=== PATIENT | male | born 2000 | race Caucasian/White ===

== ENCOUNTER 2023-11-24 14:44 | Emergency (ER) | payer OTHER, SELFPAY ==
[2023-11-24 14:48] VITALS: BP 136/72; PULSE 50; RESP 18; O2SAT 100; BMI 34.9
--- NOTE | 2023-11-24 15:06 | ED_ITS ---
HPI - Skin/Abscess/Foreign Bdy General Chief complaint: Skin/Abscess/Foreign Body Stated complaint: vomiting after choking Time Seen by Provider: 11/24/23 14:57 Source: patient and family Mode of arrival: Ambulatory History of Present Illness HPI narrative: Patient is a 23-year-old male. Has no history of reflux disease. One time several years ago had an episode where he felt like food gets stuck in his esophagus but it resolved on its own. He states that just prior to arrival he was eating chicken nuggets. He states he swallowed the chicken nugget and felt like it got stuck in his throat. He states that he vomited a couple times afterwards but nothing came up. He still feels like something is stuck in his throat. He is vomited up his saliva several times since that event. No problems breathing. No chest pain. Related Data Allergies Allergy/AdvReac Type Severity Reaction Status Date / Time amoxicillin [From Augmentin] AdvReac Hives Verified 11/24/23 14:48 clavulanic acid AdvReac Hives Verified 11/24/23 14:48 [From Augmentin] Review of Systems Review of Systems Narrative: See HPI Patient History Social History Smoking Status: Never smoker Smoking Status: Never smoker Substance Use Type: marijuana Exam Initial Vital Signs Initial Vital Signs: Vital Signs Pulse Rate 50 L 11/24/23 14:48 Respiratory Rate 18 11/24/23 14:48 Blood Pressure 136/72 11/24/23 14:48 Pulse Oximetry 100 11/24/23 14:48 Oxygen Delivery Method Room Air 11/24/23 14:48 Const General: cooperative, comfortable and No ill appearing [facility] Head: normal to inspection and normocephalic Resp Effort & Inspection: normal respiratory effort Auscultation: clear to auscultation bilaterally Cardio Rate: regular rate Rhythm: regular rhythm GI Inspection: normal to inspection and non-distended Skin General: no rashes or lesions noted Neuro General: patient alert, patient awake and moves all extremities Course Orders Ordered: Discontinued Medications Glucagon (Glucagon,Human Recombinant 1 Mg/Ml Vial) 1 mg IV NOW ONE Stop: 11/24/23 15:07 Last Admin: 11/24/23 15:17 Dose: 1 mg Vital Signs Vital signs: Vital Signs - 8 hr 11/24/23 14:48 Pulse Rate 50 L Respiratory Rate 18 Blood Pressure 136/72 Pulse Oximetry 100 Oxygen Delivery Method Room Air MDM - Skin/Abscess/Foreign Bdy MDM Narrative Medical decision making narrative: After fluids glucagon and soda patient states that he now has a complete resolut ion of his symptoms. He was able to tolerate his secretions. Is drinking soda without issues. No longer has the foreign body sensation. Will discharge patient home with instructions to follow-up with primary provider. Discharge Plan Departure Patient Disposition: Home Clinical Impression: Foreign body in esophagus Activity Restrictions/Additional Instructions: Recommend that you contact [phone] to help you establish a primary doctor here in the local area. Recommend that you are eating small bites of food and chewing appropriately. Return to the emergency department for new or worsening symptoms. Referrals: Miscellaneous,[facility] [Primary Care Provider] - Stand Alone Forms: Patient Portal/API
[2023-11-24] MEDS: GLUCAGON,HUMAN RECOMBINANT 1 MG/ML VIAL IV (15:17)
--- NOTE | 2023-11-24 15:26 | PC.NURSE ---
Patient states he is able to swallow after the glucagon. he is able to swallow and control secretions without having to spit. Patient states the pain in his chest is gone. He did consume 7.5 ml soda without difficulty.
[2023-11-24 15:31] VITALS: BP 140/70; PULSE 43; RESP 18; TEMP 37; O2SAT 98
== END 2023-11-24 15:35 | disposition home or self-care (01) ==
PROVIDERS: Emergency Provider Emergency Medicine
DX: T18.108A Unspecified foreign body in esophagus causing other injury, initial encounter (principal)
CPT/HCPCS: 36415; 96374; 99284; J1610